=== PATIENT | female | born 1990 | race Caucasian/White ===

== ENCOUNTER → 2017-04-28 07:46 | Emergency (ER) | payer OTHER ==
[~2017-04-28 07:46] MED LIST: Dexamethasone IV* 4 MG/ML 1 ML (4 MG) IV SLOW PU ONE; Ketorolac INJ* 30 MG/ML 1 ML VIAL IV ONE; Metoclopramide IV* 5 MG/ML 2 ML VIAL IV ONE; NS 0.9% 1000 ML* 1,000 ML IV ONE; diPHENhydraMINE IV* 50 MG/ML 1 ml VIAL (BENADRYL) IV ONE; fentaNYL* 50 MCG/ML 2 ML VIAL (100 MCG VIAL) IV SLOW PU ONE
[2017-04-28 08:34] LABS: Hematocrit 32 % (35-47); Hemoglobin 11.1 g/dl (12.0-16.0); Mean Corpuscular HGB Conc 34 g/dl (31-36); Mean Corpuscular Hemoglobin 31 pg (27-31); Mean Corpuscular Volume 92 fL (80-97); Mean Platelet Volume 8 um3 (7.4-10.4); Red Blood Count 3.53 10^6/ul (4.0-5.4); Red Cell Distribution Width 15 % (10.5-15); White Blood Count 7.7 10^3/ul (3.5-10.8)
[2017-04-28 08:51] LABS: ALT 36 U/L (7-52); Albumin 4.1 g/dL (3.2-5.2); Alkaline Phosphatase 84 U/L (34-104); BUN/Creatinine Ratio 26.4 (8-20); Blood Urea Nitrogen 29 mg/dL (6-24); CO2 Carbon Dioxide 20 mmol/L (22-32); Calcium 9.6 mg/dL (8.6-10.3); Chloride 107 mmol/L (101-111); EGFR African American 77.8 (>60); EGFR Non-African American 60.5 (>60); Globulin 4.1 g/dL (2-4); Glucose 83 mg/dL (70-100); Sodium 136 mmol/L (133-145); Total Protein 8.2 g/dL (6.4-8.9)
[2017-04-28 08:54] LABS: Anion Gap 9 mmol/L (2-11)
[2017-04-28 11:55] VITALS: BP 100/72
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
== END | disposition home or self-care (01) ==
LOC: ED 07:46
DX: R51 Headache (principal); E86.0 Dehydration; F41.9 Anxiety disorder, unspecified; F32.9 Major depressive disorder, single episode, unspecified; F17.210 Nicotine dependence, cigarettes, uncomplicated
CPT/HCPCS: 36415; 80053; 83605; 85025; 93005; 96361; 96374; 96375; 99284; J1100; J1200; J1885